=== PATIENT | female | born 1995 ===

== ENCOUNTER 2024-01-30 18:26 | Emergency (ER) | payer OTHER ==
[2024-01-30 19:04] LABS: APPEARANCE,URINE CLEAR; BILIRUBIN,URINE NEGATIVE (NEGATIVE); COLOR,URINE YELLOW; GLUCOSE,URINE NEGATIVE (NEGATIVE); KETONES,URINE NEGATIVE (NEGATIVE); LEUKOCYTE ESTERASE,URINE NEGATIVE (NEGATIVE); NITRITE,URINE NEGATIVE (NEGATIVE); OCCULT BLOOD,URINE MODERATE (NEGATIVE); PROTEIN,URINE NEGATIVE (NEGATIVE); UROBILINOGEN,URINE 0.2 EU/dL (<2.0)
[2024-01-30 19:13] LABS: BACTERIA,URINE FEW (NEGATIVE); EPITHELIAL CELLS,URINE FEW (NONE-FEW); MUCUS,URINE LIGHT (NONE-MOD); WBC,URINE 0-2 (0-5/HPF)
[2024-01-30 19:14] LABS: AMORPHOUS SEDIMENT,URINE LIGHT (NEGATIVE)
[2024-01-30] MEDS: Cephalexin 500 MG Cap PO ONE (20:48)
== END 2024-01-30 20:52 | disposition home or self-care (01) ==
LOC: MW.ED 18:26
DX: R30.0 Dysuria (principal); Z75.8 Other problems related to medical facilities and other health care; Z79.899 Other long term (current) drug therapy
CPT/HCPCS: 81001; 99283; A9270